=== PATIENT | female | born 1995 | race Caucasian/White ===

== ENCOUNTER 2022-02-26 11:38 | Emergency (ER) | payer OTHER, SELFPAY ==
[2022-02-26 12:06] VITALS: BP 116/78; PULSE 98; RESP 16; TEMP 36.7; O2SAT 100; BMI 23.4
--- NOTE | 2022-02-26 12:53 | ED.CHESTPAIN ---
HPI - Chest Pain General Chief Complaint: Chest Pain Stated Complaint: Chest pain Time Seen by Provider: 02/26/22 11:59 History of Present Illness HPI narrative: This 26-year-old female comes in reporting some chest discomfort that began last evening. She states that there is kind of a tightness or heaviness that is dull and mild but constant and then she has some episodes were discomfort or pain intensifies briefly. She does not report any nausea, vomiting, lightheadedness, shortness of breath, or diaphoresis. She is otherwise in good health. She states that she has good exercise tolerance and does exercise regularly. She locates the pain along the left sternal border. She states that she had some jaw tightness in the night also that resolved spontaneously. Related Data Home Medications Medication Instructions Recorded Confirmed No Known Home Medications 02/26/22 02/26/22 Allergies Allergy/AdvReac Type Severity Reaction Status Date / Time No Known Drug Allergies Allergy Verified 02/26/22 12:10 Review of Systems Status of ROS Reports: 10 or more systems reviewed and unremarkable except as noted in History and below Narrative Constitutional: No fevers, no weight gain or loss. Eyes: No discharge. No vision changes. HENT: No congestion, no sore throat, no ear pain. Cardiovascular: No palpitations. Chest: Patient reports pain along the left sternal border and states that it is not specifically reproducible with deep breathing or palpating in this area. Respiratory: No shortness of breath, no wheezes, no cough. Gastrointestinal: No abdominal pain, no vomiting, no diarrhea. Genitourinary: No dysuria, no hematuria. Musculoskeletal: Normal range of motion. Skin: No rashes, no pruritis. Neurological: No dizziness, weakness, sensory change, speech change. Endo/Heme/Allergies: No bruising or bleeding. No polydipsia. Pysch: no suicidality, no anxiety, no insomnia. All other systems reviewed and are negative. PFSH PFSH Social History Smoking Status: Never smoker Do you use any of these nicotine containing products: None Second hand tobacco smoke exposure: No How often do you have a drink containing alcohol: never AUDIT-C Alcohol total score: 0 Non-prescribed substance use: denies use service: No Exam Narrative Exam Narrative: Constitutional: Well-developed, well-nourished, no acute distress. HEENT: Normocephalic, atraumatic. Neck: Normal range of motion. Nontender. Supple. Heart: Regular. No murmurs. Normal rate. Intact distal pulses. Lungs: Clear to auscultation. No wheezes, rhonchi, or rales. Abdomen: Normal bowel sounds. Nontender. No rebound tenderness. Genitalia: Deferred. Back: No midline tenderness. Normal range of motion. Extremities: Normal range of motion. No injury. Skin: Intact. No rash. Warm. No erythema or pallor. Neurologic: No altered sensation. No weakness. Alert and oriented. Psychiatric: No suicidality. No anxiety or depression. No insomnia. Nursing notes and vitals signs are reviewed. Const Vital Signs, click to edit/add: Vital Signs - 24 hr 02/26/22 12:06 Temperature 98.1 F Pulse Rate [Bilateral Pulse Oximeter] 98 Respiratory Rate 16 Blood Pressure [Right Upper Arm] 116/78 Pulse Oximetry 100 Oxygen Delivery Method Room Air Course Vital Signs Vital signs: Initial Vital Signs Temperature 98.1 F 02/26/22 12:06 Temperature Source Temporal Artery Scan 02/26/22 12:06 Pulse Rate 98 02/26/22 12:06 Pulse Rhythm 02/26/22 12:06 Pulse Strength 3+ Normal 02/26/22 12:06 Respiratory Rate 16 02/26/22 12:06 Blood Pressure 116/78 02/26/22 12:06 Blood Pressure Mean 90 02/26/22 12:06 Blood Pressure Position Sitting 02/26/22 12:06 Pulse Oximetry 100 02/26/22 12:06 Oxygen Delivery Method 02/26/22 12:06 Vital Signs Temperature 98.1 F 02/26/22 12:06 Pulse Rate 98 02/26/22 12:06 Respiratory Rate 16 02/26/22 12:06 Blood Pressure 116/78 02/26/22 12:06 Pulse Oximetry 100 02/26/22 12:06 Oxygen Delivery Method 02/26/22 12:06 Temperature 98.1 F 02/26/22 12:06 Pulse Rate 98 02/26/22 12:06 Respiratory Rate 16 02/26/22 12:06 Blood Pressure 116/78 02/26/22 12:06 Pulse Oximetry 100 02/26/22 12:06 Oxygen Delivery Method 02/26/22 12:06 MDM - Chest Pain MDM Narrative Medical decision making narrative: This patient comes in with chest discomfort along the left sternal border. She does not have any cardiac risk factors and has normal vital signs. Her pain is not specifically reproducible but does occur along the sternal border suggesting a costal chondritis or chest wall type pain. Her EKG shows normal sinus rhythm. I also did use bedside ultrasound to evaluate her heart and lungs as a screening test. I did not place an order for this exam. This was sufficiently reassuring to the patient. She states that she will use [id number] medicines as needed and directed. During the evaluation of this patient I considered multiple differential diagnoses. The life-threatening differentials include: CAD/NE, PE, pneumothorax, pneumonia and aortic dissection. Other differential diagnoses include but are not limited to: Pericarditis, myocarditis, chest wall pain, GERD, esophageal rupture, as well as other etiologies. ECG Data Attestation: I personally reviewed and interpreted this ECG as follows: Interpretation: Normal sinus rhythm. Rate 89 beats per minute. There are no ST or T-wave abnormalities. Discharge Plan Discharge Clinical Impression: Acute chest wall pain Prescriptions: No Action No Known Home Medications Follow Up/Referrals: Jossie Rodriguez MD [Primary Care Provider] -
--- OUTSIDE RECORDS SUMMARY | 2022-02-26 13:18 | XMS_ITS | Clinical Summary ---
:1995 Author Organization [facility] [place] [address] Care Team Providers Name Role Phone [facility] Primary Care Provider Allergies No known active allergies Medications No known medications Active Problems No known active problems Immunizations Name Administration Dates Next Due DTP 03/18/2002, 02/26/1999, 05/29/1998, 03/27/1998, 01/23/1998 HIB HbOC (HibTITER) 02/06/1999, 05/29/1998, 03/27/1998, 01/23/1998 Hepatitis A, Unspecified 09/12/2000, 02/27/2000 Hepatitis B, Unspecified 11/21/1998, 1997, 1997 Human Papilloma Virus Vaccine 05/16/2014, 12/13/2013, 2013 Influenza, IIV4 (=>6mos) MDV 02/04/2020 Influenza,CCIIV4 PRESERV FREE 03/13/2021 MMR 03/18/2002, 02/26/1999 Meningococcal Vaccine (Menactra) 05/02/2009 Meningococcal Vaccine (Menveo) 11/10/2015 Oral Polio Vaccine 03/18/2002, 02/26/1999, 03/27/1998, 01/23/1998 Tdap 04/06/2021, 05/02/2009 Varicella Vaccine 04/21/2006, 11/21/1998 Family History Medical History Relation Name Comments Seizures Father No Known Problems Mother Relation Name Status Comments Father Alive Mother Alive Social History Tobacco Use Types Packs/Day Years Used Date Never Smoker Smokeless Tobacco: Never Used Tobacco Cessation: Counseling Given: Yes Alcohol Use Standard Drinks/Week Comments Yes 0 (1 standard drink = 0.6 oz pure alcoho l) ocassional Alcohol Habits Answer Date Recorded How often do you have a drink containing alcohol? Not asked How many drinks containing alcohol do you have on a typical Not asked day when you are drinking? How often do you have six or more drinks on one occasion? No t asked Comment: ocassional 04/06/2021 Sex Assigned at Date Recorded Not on file Obstetrics History Last Filed Vital Signs Vital Sign Reading Time Taken Comments Blood Pressure 103/68 04/06/2021 8:14 AM SAFETY EQUIPMENT TESTER Pulse 91 04/06/2021 8:14 AM SAFETY EQUIPMENT TESTER Temperature 36.9 ??C (98.4 ??F) 04/10/2019 1:09 PM SAFETY EQUIPMENT TESTER Respiratory Rate - - Oxygen Saturation 99% 04/06/2021 8:14 AM SAFETY EQUIPMENT TESTER Inhaled Oxygen Concentration - - Weight 65.7 kg (144 lb 12.8 oz) 04/06/2021 8:14 AM SAFETY EQUIPMENT TESTER Height 160.6 cm (5' 3.23) 04/06/2021 8:14 AM SAFETY EQUIPMENT TESTER Body Mass Index 25.47 04/06/2021 8:14 AM SAFETY EQUIPMENT TESTER Plan of Treatment Health Maintenance Due Date Last Done Comments Chlamydia for age 16-24 2013 Hepatitis C screening for age 18-79 11/20/2015 Pap test for age 21-65 2018 COVID-19 vaccine series (4 - Booster 06/01/2021 04/06/2021, 06/15/2020, for Moderna series) 05/17/2020 Influenza for age 9-49 01/03/2022 03/13/2021, 02/04/2020 BMI (ht and wt on same day) for age 1204/06/2022 04/06/2021 18+ Depression screening for age 12+ 04/06/2022 04/06/2021 Tetanus booster 04/06/2031 04/06/2021, 05/02/2009 HPV series for age 9-26 Completed 05/16/2014, 12/13/2013, 10/01/2013 Tdap Completed 04/06/2021, 05/02/2009 Results Not on filefrom Last 3 Months Care Teams Ab Initio Etl Developer Relationship Specialty Start Date End Date [facility] PCP - General 01/16/21 [address] [place], [place] [id number]
== END 2022-02-26 13:52 | disposition home or self-care (01) ==
PROVIDERS: Emergency Provider Emergency Medicine Emergency Medical Services; PCP Family Medicine
DX: R07.89 Other chest pain (principal)
CPT/HCPCS: 93005; 99283; 99284

== ENCOUNTER 2023-10-16 22:19 | Emergency (ER) | payer OTHER, SELFPAY ==
[2023-10-16 22:33] VITALS: BP 135/92; PULSE 144; RESP 16; TEMP 37.6; O2SAT 98; BMI 25.4
--- NOTE | 2023-10-16 23:29 | ED_ITS ---
HPI - Animal Bite General Time Seen by Provider: 23:29 Date Seen: 10/16/23 Chief Complaint: Animal Bite Stated Complaint: dog bite Time Seen by Provider: 10/16/23 23:22 Source: patient and RN notes reviewed Mode of arrival: ambulatory Limitations: no limitations History of Present Illness HPI narrative: This 27-year-old female is coming in with a dog bite to her right outer thigh area. She was at a dog park just waiting for friend when someone's dog ran by in just bit her. She was wearing shorts, her skin was exposed. The owners reportedly stated that the dog is vaccinated. The patient did not stay in get any information, left to attend to her wound. She wash this wound with soap and water. The wound is swelling more, is painful. This happened around 5:00 p.m. tonight. It happened quickly, she is really not sure what triggered it. She believes her tetanus to be up-to-date within the last 4 years. We did look this up on the [place] immunizations site and it was last done on 04/06/2021. The police have been here, patient gave what information she could. All she knows was that this was a larger dog. This was in the confines of a dog park. She is not sure if she should trust the person to believe them that they stated the dog was immunized. We did discuss rabies. We did discuss that rabies is universally fatal; however, it is extremely uncommon in the canine population in the [facility]. This was not a feral random dog. This was someone's PET. In that population even if we do not have confirmed vaccination status, statis tics would state that it is low likelihood of having rabies. Reportedly, there has been no reported case of rabies from domestic dogs or cats in the [facility] since the early . I direct her to contact [place] department of Health if she has further questions tomorrow. We did discuss risk of infection from animal bites and that certainly is a concern, would recommend that she initiate oral antibiotics to prevent this. We did discuss the swelling from the crush injury. It is at the outer aspect of the thigh and certainly there will be bruising and swelling. Do recommend ice. complaint: animal bite Related Data Previous Rx's ?Medication ?Instructions ?Recorded amoxicillin 875 mg-potassium 1 tab PO BID #14 tabs 10/16/23 clavulanate 125 mg tablet Allergies Allergy/AdvReac Type Severity Reaction Status Date / Time No Known Drug Allergies Allergy Verified 07/03/23 10:48 Review of Systems Narrative: As per HPI. [facility] Medical History Sinus infection ?J32.9 - Chronic sinusitis, unspecified (ICD-10) Social History Smoking Status: Never smoker Do you use any of these nicotine containing products: None Second hand tobacco smoke exposure: No How often do you have a drink containing alcohol: never AUDIT-C Alcohol total score: 0 Non-prescribed substance use: denies use service: No Exam Const: Vital Signs, click to edit/add: Vital Signs - 24 hr 10/16/23 22:33 Temperature 99.6 F Pulse Rate [Pulse Oximeter] 144 H Respiratory Rate 16 Blood Pressure [Le ft Upper Arm] 135/92 H Pulse Oximetry 98 Oxygen Delivery Me thod Room Air 27-year-old female is alert, interactive, no apparent distress but anxious. She was ambulatory into the ED of her own accord. She has gauze bandages cm and a tire around her upper leg. This was removed and on the outer aspect of the upper thigh there is bruising and swelling with abrasions from the animals teeth. There is no significant puncture wounds noted. These look more to be superficial abrasions but have penetrated through skin. Some are oozing some serosanguineous discharge. It is about a 6-8 cm circular area. Documenting provider has reviewed patient's vital signs: yes Course Course ED Course: Patient and I discussed antibiotic use, conservative management of the contusion/crush injury. We did discuss rabies, ultimately she needs to make that decision. She does not have to decide tonight, she can contact [place] department of [facility] if she has further questions. I am not recommending this but certainly will offer it to her if she would feel that she wants it. We have went over my rationale behind my decision. Vital Signs Vital signs: Initial Vital Signs Temperature 99.6 F 10/16/23 22:33 Temperature Source Temporal Artery Scan 10/16/23 22:33 Pulse Rate 144 H 10/16/23 22:33 Respiratory Rate 16 10/16/23 22:33 Blood Pressure 135/92 H 10/16/23 22:33 Blood Pressure Mean 106 H 10/16/23 22:33 Blood Pressure Position Sitting 10/16/23 22:33 Pulse Oximetry 98 10/16/23 22:33 Oxygen Delivery Method Room Air 10/16/23 22:33 Vital Signs Temperature 99.6 F 10/16/23 22:33 Pulse Rate 144 H 10/16/23 22:33 Respiratory Rate 16 10/16/23 22:33 Blood Pressure 135/92 H 10/16/23 22:33 Pulse Oximetry 98 10/16/23 22:33 Oxygen Delivery Method Room Air 10/16/23 22:33 Temperature 99.6 F 10/16/23 22:33 Pulse Rate 144 H 10/16/23 22:33 Respiratory Rate 16 10/16/23 22:33 Blood Pressure 135/92 H 10/16/23 22:33 Pulse Oximetry 98 10/16/23 22:33 Oxygen Delivery Method Room Air 10/16/23 22:33 Discharge Plan Discharge Clinical Impression: Dog bite Qualifiers: Encounter type: initial encounter Qualified Code(s): W54.0XXA - Bitten by dog, initial encounter Patient Disposition: Home, Self-Care Condition: Stable Instructions: Animal Bite (ED) Additional Instructions: Start oral antibiotic tomorrow morning and take as prescribed. Recommend ice to this area to help decrease pain and swelling. You can use Tylenol and ibuprofen alternating per bottle directions as needed for pain control. If you feel the wound is becoming infected despite antibiotic use, do recommend re- evaluation. If you have further questions regarding rabies prophylaxis, can contact the [facility] tomorrow in talk to their rabies department. As stated before, rabies in a domesticated dog is extremely low in the [facility]. Activity Level: Activity as Tolerated Prescriptions: New amoxicillin-pot clavulanate 875-125 mg tablet 1 tab PO BID Qty: 14 0RF Follow Up/Referrals: Jossie Rodriguez MD [Primary Care Provider] - Stand Alone Forms: [employer] Info Instructions
--- OUTSIDE RECORDS SUMMARY | 2023-10-16 23:52 | XMS_ITS | Clinical Summary ---
Author Organization [facility] Address [place], [place] [address] Care Team Providers Care Dope House Operator Helper Name Role Phone Jossie Rodriguez MD Primary Care Provider [phone] Allergies No known active allergies Medications Medication Sig Dispensed Refills Start Date End Date Status meclizine (ANTIVERT) 25 mg tabletIndications:His tory of motion sickness Take 1 Tablet (25 mg) by mouth 3 times daily if needed for Motion Sickness. 30 Tablet 1 05/22/2022 Active Active Problems Problem Noted Date Diagnosed Date Vitamin D deficiency 05/12/2018 Low serum ferritin level 12/31/2016 Immunizations Name Administration Dates Next Due DTP 03/18/2002, 9,05/29/1998,03/27/1998 ,01/23/1998 HIB HbOC (HibTITER) 02/06/1999,05/29/1998,1997,01/23/1998 Hepatitis A, Unspecified 09/12/2000,02/27/2000 Hepatitis B, Unspecified 11/21/1998,1997,0 1997 Human Papilloma Virus Vaccine 05/16/2014, 014,10/01/2013 Influenza, IIV4 03/06/2022 Influenza, IIV4 (=>6mos) MDV 02/04/2020 Influenza,CCIIV4 PRESERV FREE 03/13/2021 MMR 03/18/2002,02/26/1999 Meningococcal Vaccine (Menactra) 05/02/2009 Meningococcal Vaccine (Menveo) 11/10/2015 Oral Polio Vaccine 03/18/2002,02/26/1999, 998,01/23/1998 Tdap 04/06/2021,05/02/2009 Varicella Vaccine 04/21/2006,11/21/1998 Family History Medical History Relation Name Comments Seizures Father Diabetes type II Maternal Grandfather Diabetes type II Maternal Uncle No Known Problems Mother Relation Name Status Comments Father Alive Maternal Grandfather Maternal Uncle Alive Mother Alive Social History Tobacco Use Types Packs/Day Years Used Date Smoking Tobacco: Never Smokeless Tobacco: Never Tobacco Cessation:Counseling Given: Not Answered Alcohol Use Standard Drinks/Week Comments Yes 0 (1 standard drink = 0.6 oz pur e alcohol) ocassional PHQ-2 Answer Date Recorded PHQ-2 TOTAL SCORE 1 05/22/2022 Social Connections Answer Date Recorded Frequency of Communication with Friends and Fami ly Not on file 05/23/2023 Financial Resource Strain Answer Date R ecorded Difficulty of Paying Living Expenses 3 05/22/2022 Difficulty of Paying Living Expenses Not on file 05/22/2022 Food Insecurity Answer Date Recorded Worried About Running Out of Food in the Last Ye ar 1 05/22/2022 Transportation Needs Answer Date Record ed Lack of Transportation (Medical) 1 05/22/2022 Housing Stability Answer Date Recorded Unable to Pay for Housing in the Last Year 1 05/22/2022 Sex and Gender Information Value Date Recorded Sex Assigned at Not on file Gender Identity Not on file Sexual Orientation Not on file Obstetrics History Last Filed Vital Signs Vital Sign Reading Time Taken Comments Blood Pressure 118/72 06/06/2022 7:33 AM BOBCAT DRIVER/LABOR Pulse 94 06/06/2022 7:33 AM BOBCAT DRIVER/LABOR Temperature 36.4 ??C (97.6 ??F) 06/06/2022 7:33 AM CS T Respiratory Rate - - Oxygen Saturation 100% 06/06/2022 7:33 AM BOBCAT DRIVER/LABOR Inhaled Oxygen Concentration - - Weight 61.5 kg (135 lb 9.6 oz) 06/06/2022 7:33 A M BOBCAT DRIVER/LABOR Height 160 cm (5' 3) 06/06/2022 7:33 AM BOBCAT DRIVER/LABOR Body Mass Index 24.02 06/06/2022 7:33 AM BOBCAT DRIVER/LABOR Plan of Treatment Health Maintenance Due Date Last Done Comments HIV for age 15-65 2012 Hepatitis C screening for age 18-79 11/20/2015 Pap test for age 21-65 2018 COVID-19 vaccine series (5 - 2023-24 season) 2023 03/09/2022, 04/06/2021, 06/15/2020, Additional history exists Depression screening for age 12+ 05/22/2023 05/22/2022, 04/06/2021 BMI (ht and wt on same day) for age 18+ 06/06/2023 06/06/2022, 05/22/2022, 04/06/2021 Influenza for age 9-49 01/04/2024 , 03/13/2021, 02/04/2020 Tetanus booster 04/06/2031 04/06/2021, 05/02/2009 HPV series for age 9-26 Completed 05/16/19 15, 12/13/2013, 10/01/2013 Tdap Completed 04/06/2021, 05/02/2009 Pneumococcal series for age 6-64 Aged Out No longer eligible based on patient's age to complete this topic Care Teams Dope House Operator Helper Relationship Specialty Start Date End Date Jossie Rodriguez MD [address] [place] [address] PCP - General Family Practice 05/22/22
[2023-10-17 00:10] VITALS: PULSE 89; RESP 16; TEMP 36.9; O2SAT 98
[2023-10-17] MEDS: BACITRACIN 0.9 GM PACKET 1 EACH TOPICAL (00:10)
== END 2023-10-17 00:12 | disposition home or self-care (01) ==
PROVIDERS: Emergency Provider Family Medicine; PCP Family Medicine
DX: S70.371A Other superficial bite of right thigh, initial encounter (principal); W54.0XXA Bitten by dog, initial encounter; Y92.830 Public park as the place of occurrence of the external cause
CPT/HCPCS: 99282; 99283; A9270